=== PATIENT | male | born 1960 | race Caucasian/White ===

== ENCOUNTER → 2020-11-09 | Day surgery (SDC) | payer OTHER | END | disposition home or self-care (01) | LOC: MSO 09:34 | DX: K58.2 Mixed irritable bowel syndrome (principal); K64.1 Second degree hemorrhoids; K29.30 Chronic superficial gastritis without bleeding; K21.9 Gastro-esophageal reflux disease without esophagitis; F17.290 Nicotine dependence, other tobacco product, uncomplicated; Z79.899 Other long term (current) drug therapy | CPT/HCPCS: 00813; J2704; J7120 ==